=== PATIENT | male | born 1995 | race African-American/Black ===

== ENCOUNTER 2019-09-18 07:58 | Emergency (ER) | payer OTHER ==
[~2019-09-18] VITALS: Ht 177.8 cm; Wt 86.2 kg
[2019-09-18] MEDS ORDERED: LIDOCAINE 1% (LOCAL ANESTH.) PF 5ml SDV ID ONE (09:30)
[2019-09-18 10:06] VITALS: BP 137/85
== END 2019-09-18 11:09 | disposition home or self-care (01) ==
LOC: EEVIPCON 07:58 → ER 07:58
DX: S20.352A Superficial foreign body of left front wall of thorax, initial encounter (principal); Z87.828 Personal history of other (healed) physical injury and trauma; W22.8XXA Striking against or struck by other objects, initial encounter; Y93.89 Activity, other specified; Y92.89 Other specified places as the place of occurrence of the external cause; Y99.8 Other external cause status
CPT/HCPCS: 10120; 71046